=== PATIENT | male | born 1950 | race Caucasian/White ===

== ENCOUNTER → 2025-01-18 15:12 | Outpatient (CLI) | payer MEDICARE, SELFPAY ==
[2025-01-18 16:02] LABS: Influenza A - CEPHEID Flu A NEGATIVE (NEGATIVE); Influenza B - CEPHEID Flu B NEGATIVE (NEGATIVE)
[2025-01-18 16:20] LABS: COVID-19 CEPHEID 4-PLEX PCR POSITIVE (Negative)
[2025-01-18 17:26] LABS: Blood Urea Nitrogen 13 mg/dL (9-20); Calcium 8.9 mg/dL (8.4-10.2); Carbon Dioxide 26 mmol/L (22-32); Chloride 103 mmol/L (98-107); Estimated Glomerular Filt Rate > 60 mL/min (>60); Glucose 92 mg/dL (70-99); HEMOLYSIS < 15 (0-50); Potassium 3.9 mmol/L (3.4-5.1); Sodium 138 mmol/L (137-145)
== END ==
PROVIDERS: PCP Family Medicine; Visit Provider Nurse Practitioner Family
DX: R05.1 Acute cough (principal)
CPT/HCPCS: 36415; 80048; 87637